=== PATIENT | male | born 1960 | race Caucasian/White ===

== ENCOUNTER 2024-11-15 12:05 | Inpatient (IN) ==
[2024-11-15] MEDS: TRANEXAMIC ACID 1,000 MG/10 ML VIAL NAS ONE (12:42)
[2024-11-15] MEDS: OXYMETAZOLINE 1 NASAL SPRAY BOTTLE NAS ONE (12:43)
[2024-11-15 13:21] LABS: INR 2.4 (0.9-1.1); Prothrombin Time 27.7 sec (11.9-14.5)
[2024-11-15 14:47] LABS: ALT/SGPT 24 U/L (<40); AST/SGOT 14 U/L (<40); Albumin/Globulin Ratio 1.3 (1.0-2.3); Alkaline Phosphatase 103 U/L (39-117); Bilirubin,Total 0.7 mg/dL (0.1-1.0); Blood Urea Nitrogen 15 mg/dL (8-23); Carbon Dioxide 28 mmol/L (22-30); Chloride 104 mmol/L (96-108); Globulin 3.1 gm/dL (2.2-3.7); Glomerular Filtration Rate 90; Glucose 90 mg/dL (70-105); Potassium 4.3 mmol/L (3.3-5.1); Sodium 141 mmol/L (133-145)
[2024-11-15 15:02] LABS: Basophils # (Auto) 0.01 K/mcL (0.00-0.30); Basophils % (Auto) 0.3 % (0.0-2.0); Eosinophils % (Auto) 2.6 % (0.0-7.0); Hemoglobin 12.6 g/dL (13.7-17.5); Lymphocytes # (Auto) 1.65 K/mcL (1.50-4.80); Lymphocytes % (Auto) 42.1 % (15.5-49.0); Mean Cell Volume 101.3 fL (80.0-100.0); Mean Corpuscular HGB Conc 33.2 g/dL (31.0-36.0); Mean Platelet Volume 11.4 fL (8.8-12.5); Monocytes % (Auto) 7.7 % (1.0-12.0); Platelet Count 106 K/mcL (140-440); RBC 3.75 M/mcL (4.63-6.08); Red Cell Distribution Width 13.9 % (11.5-14.5); WBC 3.9 K/mcL (4.5-11.0)
[2024-11-15] MEDS ORDERED: SENNOSIDES 1 TABLET PO PRN (17:37)
[2024-11-15] MEDS ORDERED: ONDANSETRON 4 MG/2 ML VIAL IV PRN (17:37)
[2024-11-15] MEDS ORDERED: LACTULOSE 20 GM/30 ML ORAL.SOL PO PRN (17:37)
[2024-11-15] MEDS ORDERED: VANCOMYCIN PER PHARMACY IV SCH (17:37)
[2024-11-15] MEDS ORDERED: HYDROcodone/APAP 5/325MG TABLET PO PRN (17:37)
[2024-11-15] MEDS: 0.9 % SODIUM CHLORIDE 250 ML IV SCH (19:07)
[2024-11-15] MEDS: LEVOFLOXACIN 750 MG TABLET PO SCH (20:11)
[2024-11-15] MEDS: DOCUSATE SODIUM 100 MG CAPSULE PO SCH (20:12)
[2024-11-15] MEDS: VANCOMYCIN 1,500 MG in 0.9 % SODIUM CHLORIDE 500 ML IV SCH (20:12)
[2024-11-15] MEDS: ACETAMINOPHEN 325 MG TABLET PO PRN (20:13)
[2024-11-15] MEDS: 0.9 % SODIUM CHLORIDE 10 ML SYRINGE IV SCH (20:14)
[2024-11-16 06:20] LABS: INR 2.6 (0.9-1.1); Prothrombin Time 29.7 sec (11.9-14.5)
[2024-11-16 06:21] LABS: Basophils # (Auto) 0.01 K/mcL (0.00-0.30); Basophils % (Auto) 0.3 % (0.0-2.0); Eosinophils # (Auto) 0.06 K/mcL (0.00-0.70); Eosinophils % (Auto) 1.5 % (0.0-7.0); Hematocrit 33.2 % (40.1-51.0); Lymphocytes # (Auto) 1.41 K/mcL (1.50-4.80); Lymphocytes % (Auto) 35.9 % (15.5-49.0); Mean Cell Volume 100.6 fL (80.0-100.0); Mean Corpuscular HGB Conc 33.1 g/dL (31.0-36.0); Mean Platelet Volume 10.7 fL (8.8-12.5); Monocytes # (Auto) 0.38 K/mcL (0.10-0.90); Monocytes % (Auto) 9.7 % (1.0-12.0); Neutrophils % (Auto) 52.3 % (38.0-78.0); Platelet Count 98 K/mcL (140-440); Red Cell Distribution Width 13.6 % (11.5-14.5); WBC 3.9 K/mcL (4.5-11.0)
[2024-11-16] MEDS: FOLIC ACID 1 MG TABLET PO SCH (08:55)
[2024-11-16] MEDS: CYANOCOBALAMIN 1,000 MCG/ML VIAL IM SCH (08:56)
== END 2024-11-16 12:29 | disposition home or self-care (01) | DRG 151 ==
LOC: ED 12:05 → ICU 17:30
PROVIDERS: ADMIT Internal Medicine; ATTEND Internal Medicine